=== PATIENT | female | born 1970 | race Caucasian/White ===

== ENCOUNTER 2017-10-03 22:14 | Emergency (ER) | payer MEDICAID, OTHER ==
[~2017-10-03] VITALS: Ht 4948.4 cm; Wt 98.8 kg
[~2017-10-03 22:14] MED LIST: ONDA4TAB12 PO
[2017-10-03] MEDS ORDERED: BACI1PAC7 TOP (23:05)
[2017-10-03 23:10] VITALS: BP 154/91
[2017-10-04] MEDS ORDERED: CEPH500C5 PO (12:02)
== END 2017-10-03 23:15 | disposition home or self-care (01) ==
LOC: ER 22:14
DX: L73.1 Pseudofolliculitis barbae (principal); J45.909 Unspecified asthma, uncomplicated; E11.9 Type 2 diabetes mellitus without complications
CPT/HCPCS: 99282

== ENCOUNTER 2017-10-04 11:37 | Emergency (ER) | payer MEDICAID ==
[~2017-10-04] VITALS: Ht 147.3 cm; Wt 98.0 kg
[~2017-10-04 11:37] MED LIST changes: +BACI1PAC7 TOP
[2017-10-04] MEDS ORDERED: CEPH500C5 PO (12:02)
[2017-10-04 12:25] VITALS: BP 132/85
[2017-10-05] MEDS ORDERED: HYDR-565 PO (17:10)
[2017-10-05] MEDS ORDERED: SULF1TAB48 PO (17:10)
== END 2017-10-04 12:26 | disposition home or self-care (01) ==
LOC: ER 11:37
DX: L73.9 Follicular disorder, unspecified (principal); R05 Cough; J00 Acute nasopharyngitis [common cold]; E11.9 Type 2 diabetes mellitus without complications; J45.909 Unspecified asthma, uncomplicated
CPT/HCPCS: 99283

== ENCOUNTER 2017-10-05 16:21 | Emergency (ER) | payer MEDICAID ==
[~2017-10-05] VITALS: Ht 149.9 cm; Wt 99.0 kg
[~2017-10-05 16:21] MED LIST changes: +CEPH500C5 PO
[2017-10-05] MEDS ORDERED: sulfamethoxazole/trimethoprim DS (800/160mg) tablet PO ONE (16:45)
[2017-10-05] MEDS ORDERED: LIDOcaine 1.5% w/epinephrine 1:200,000 5ml ampul IJ ONE (16:50)
[2017-10-05] MEDS ORDERED: HYDR-565 PO (17:10)
[2017-10-05] MEDS ORDERED: SULF1TAB48 PO (17:10)
[2017-10-05 17:28] VITALS: BP 145/89
== END 2017-10-05 17:31 | disposition home or self-care (01) ==
LOC: ER 16:22
DX: L02.01 Cutaneous abscess of face (principal); J45.909 Unspecified asthma, uncomplicated; E11.9 Type 2 diabetes mellitus without complications
CPT/HCPCS: 10060; 87070; 87077; 87186; 99284; A6449; J3490